=== PATIENT | female | born 1995 | race African-American/Black ===

== ENCOUNTER 2016-12-20 12:09 | Emergency (ER) | payer SELFPAY ==
[~2016-12-20] VITALS: Ht 157.5 cm; Wt 59.0 kg
[~2016-12-20 12:09] MED LIST: BENZ100C PO; CYCL10TA2 PO; FLUT9.9S NS; HYDR-971 PO; IBUP-1060 PO; PSEU120T58 PO; implanon
[2016-12-20 12:47] VITALS: BP 121/70
[2016-12-20] MEDS ORDERED: BUTALB/APAP/CAFEIN 50/325/40MG TABLET. PO PRN (13:30)
[2016-12-20] MEDS ORDERED: ONDANSETRON ODT 4 MG TAB.RAPDIS. PO ONE (13:30)
[2016-12-20] MEDS ORDERED: BUTA1CAP29 PO (13:48)
[2016-12-20] MEDS ORDERED: PROM25TA10 PO (13:48)
--- NOTE | 2016-12-20 13:49 | PHYS DOC ---
Past Medical History Past Medical History: Migraines Additional Past Medical Histor: reports seizures as child, none after puberty Past Surgical History: No Surgical History Alcohol Use: None Drug Use: None Adult General Chief Complaint Chief Complaint: HEADACHE HPI HPI Patient is a 21 year old female with history of migraine headaches who presents today with generalized migraine headache rated at 8 out of 10 that began 3 weeks ago and has been going on intermittently since then. Patient states she is supposed to be on migraine headache medication but she ran out of the medication. She states she does not have a PCP to get a refills. Patient denies this being the worst headache in her life. She is complaining of slight intermittent nausea with the headache. Review of Systems Review of Systems Constitutional: Denies fever or chills [] Eyes: Denies change in visual acuity, redness, or eye pain [] HENT: Denies nasal congestion or sore throat [] Respiratory: Denies cough or shortness of breath [] Cardiovascular: No additional information not addressed in HPI [] GI: Denies abdominal pain, nausea, vomiting, bloody stools or diarrhea [] : Denies dysuria or hematuria [] Musculoskeletal: Denies back pain or joint pain [] Integument: Denies rash or skin lesions [] Neurologic: Migraine headache Endocrine: Denies polyuria or polydipsia [] Current Medications Current Medications Current Medications Medications (Trade) Dose Ordered Sig/Bertrand Start Time Stop Time Status Last Admin Dose Admin Acetaminophen/ Butalbital/ Caffeine (Fioricet) 1 tab PRN Q6HRS PRN 12/20/16 13:30 Ondansetron HCl (Zofran Odt) 4 mg 1X ONCE 12/20/16 13:30 12/20/16 13:31 DC Allergies Allergies Allergies Coded Allergies Type Severity Reaction Last Updated Verified No Known Drug Allergies 04/21/14 No Physical Exam Physical Exam Constitutional: Well developed, well nourished, no acute distress, non-toxic appearance. [] HENT: Normocephalic, atraumatic, bilateral external ears normal, oropharynx moist, no oral exudates, nose normal. [] Eyes: PERRLA, EOMI, conjunctiva normal, no discharge. [] Neck: Normal range of motion, no tenderness, supple, no stridor. [] Cardiovascular:Heart rate regular rhythm, no murmur [] Lungs & Thorax: Bilateral breath sounds clear to auscultation [] Abdomen: Bowel sounds normal, soft, no tenderness, no masses, no pulsatile masses. [] Skin: Warm, dry, no erythema, no rash. [] Back: No tenderness, no CVA tenderness. [] Extremities: No tenderness, no cyanosis, no clubbing, ROM intact, no edema. [] Neurologic: Alert and oriented X 3, normal motor function, normal sensory function, no focal deficits noted. Cranial nerves II through XII intact Psychologic: Affect normal, judgement normal, mood normal. [] Current Patient Data Vital Signs Vital Signs Date Time Temp Pulse Resp B/P Pulse Ox O2 Delivery O2 Flow Rate FiO2 12/20/16 12:47 98.3 75 20 100 Room Air 98.3 EKG EKG [] Radiology/Procedures Radiology/Procedures [] Course & Med Decision Making Course & Med Decision Making Pertinent Labs and Imaging studies reviewed. (See chart for details) Patient is in the ED with chronic migraine headaches. Discharged with Fioricet and promethazine. Follow-up with her own doctor in 1-2 weeks. Dragon Disclaimer Dragon Disclaimer This electronic medical record was generated, in whole or in part, using a voice recognition dictation system. Departure Departure Impression: Primary Impression: Migraine headache Disposition: 01 HOME, SELF-CARE Condition: STABLE Referrals: NO PCP (PCP) Follow-up with your own doctor in a week Patient Instructions: Migraine Headache Additional Instructions: You were seen for chronic migraine headache. Take the prescribed medicines as needed. Follow-up with your own doctor in the next 7 days. Come back to the ED if symptoms worsen. Scripts Promethazine Hcl 25 Mg Tablet1 Tab PO PRN Q6HRS #20 TAB Prov:WAYNE TAYLOR APRN 12/20/16 Butalb/Acetaminophen/Caffeine (Fioricet 50-300-40 Mg Capsule)1 Each Capsule1 Each PO PRN Q4HRS PRN MIGRAINE HEADACHE #30 CAP Prov:WAYNE TAYLOR APRN 12/20/16 Problem Qualifiers Primary Impression: Migraine headache Migraine type: without aura Status migrainosus presence: without status migrainosus Intractability: not intractable Qualified Code: G43.009 - Migraine without aura, not intractable, without status migrainosus WAYNE TAYLOR APRN Dec 20, 2016 13:49
== END 2016-12-20 13:56 | disposition home or self-care (01) ==
LOC: ER 12:09
DX: G43.909 Migraine, unspecified, not intractable, without status migrainosus (principal)
CPT/HCPCS: 99283; Q0162

== ENCOUNTER 2017-05-24 13:10 | Emergency (ER) | payer SELFPAY ==
[~2017-05-24] VITALS: Ht 157.5 cm; Wt 66.8 kg
[2017-05-24 13:10] VITALS: BP 134/80
[~2017-05-24 13:10] MED LIST changes: +BUTA1CAP29 PO; +PROM25TA10 PO
--- NOTE | 2017-05-24 14:07 | PHYS DOC ---
Past Medical History Past Medical History: Migraines Additional Past Medical Histor: reports seizures as child, none after puberty Past Surgical History: No Surgical History Alcohol Use: None Drug Use: None Adult General Chief Complaint Chief Complaint: OTHER COMPLAINTS [facility] HPI Patient is a 22 year old female presents to the emergency department stating that she has had oral sex with her partner. She states that this occurred approximately one week ago when she developed some raised areas on her tongue at the back portion. She denies any pain or discharge. She denies any difficulty with swallowing. Patient continues to state that she has good cold the information has called the nursing lines and they were concerned for sexually transmitted infections. Patient does state that she has been having some white frothy vaginal discharge. She is unable to determine if there is an odor. She does state she has a history of bacterial vaginosis in the past. Review of Systems Review of Systems Constitutional: Denies fever or chills [] Eyes: Denies change in visual acuity, redness, or eye pain [] HENT: Denies nasal congestion or sore throat. C/o raised areas on the back of the tongue Respiratory: Denies cough or shortness of breath [] Cardiovascular: No additional information not addressed in HPI [] GI: Denies abdominal pain, nausea, vomiting, bloody stools or diarrhea [] : Denies dysuria or hematuria. C/o vaginal discharge Musculoskeletal: Denies back pain or joint pain [] Integument: Denies rash or skin lesions [] Neurologic: Denies headache, focal weakness or sensory changes [] Endocrine: Denies polyuria or polydipsia [] Current Medications Current Medications Current Medications Medications (Trade) Dose Ordered Sig/Bertrand Start Time Stop Time Status Last Admin Dose Admin Azithromycin (Zithromax) 1,000 mg 1X ONCE 05/24/17 14:15 05/24/17 14:18 DC Ceftriaxone Sodium (Rocephin Im) 250 mg 1X ONCE 05/24/17 14:15 05/24/17 14:18 DC Metronidazole (Flagyl) 2,000 mg 1X ONCE 05/24/17 14:15 05/24/17 14:18 DC Penicillin G Benzathine (Bicillin L-A) 2,400,000 unit 1X ONCE 05/24/17 14:15 05/24/17 14:18 DC Allergies Allergies Allergies Coded Allergies Type Severity Reaction Last Updated Verified No Known Drug Allergies 04/21/14 No Physical Exam Physical Exam Constitutional: Well developed, well nourished, no acute distress, non-toxic appearance. Patient is very tearful during assessment. HENT: Normocephalic, atraumatic, bilateral external ears normal, oropharynx moist, no oral exudates, nose normal. Tympanic membranes appear to be normal. Throat with no erythematous no exudate noted. Patient with small papule as noted on the back that time. No drainage or discharge coming from the site. Eyes: PERRLA, EOMI, conjunctiva normal, no discharge. [] Neck: Normal range of motion, no tenderness, supple, no stridor. [] Cardiovascular:Heart rate regular rhythm, no murmur [] Lungs & Thorax: Bilateral breath sounds clear to auscultation [] Skin: Warm, dry, no erythema, no rash. [] Back: No tenderness Extremities: No tenderness, no cyanosis, no clubbing, ROM intact, no edema. [] Neurologic: Alert and oriented X 3, normal motor function, normal sensory function, no focal deficits noted. [] Psychologic: Affect normal, judgement normal, mood normal. [] Vaginal exam completed with shallow oriented at bedside. Speculum exam patient with then white to yellow discharge noted in the vaginal vault. Manual exam no adnexal no CMT noted. Current Patient Data Vital Signs Vital Signs Date Time Temp Pulse Resp B/P (MAP) Pulse Ox O2 Delivery O2 Flow Rate FiO2 05/24/17 13:10 98.4 119 16 134/80 (98) 97 Room Air 98.4 Lab Values Laboratory Tests Test 05/24/17 13:50 Urine Collection Type Unknown Urine Color Yellow Urine Clarity Clear Urine pH 7.5 Urine Specific Halfway 1.015 Urine Protein Negative mg/dL (NEG-TRACE) Urine Glucose (UA) Negative mg/dL (NEG) Urine Ketones (Stick) Negative mg/dL (NEG) Urine Blood Negative (NEG) Urine Nitrite Negative (NEG) Urine Bilirubin Negative (NEG) Urine Urobilinogen Dipstick 0.2 mg/dL (0.2 mg/dL) Urine Leukocyte Esterase Negative (NEG) Urine RBC 0 /HPF (0-2) Urine WBC Occ /HPF (0-4) Urine Squamous Epithelial Cells Mod /LPF Urine Bacteria Moderate /HPF (0-FEW) Urine Mucus Mod /LPF POC Urine HCG, Qualitative Hcg negative (Negative) Microbiology 05/24/17 Wet Prep - Final, Complete EKG EKG [] Radiology/Procedures Radiology/Procedures [] Course & Med Decision Making Course & Med Decision Making Pertinent Labs and Imaging studies reviewed. (See chart for details) Wet prep was positive for bacterial vaginosis. Patient has requested be treated for syphilis, gonorrhea and chlamydia. Patient was also treated for Trichomonas. Patient will be discharged home with recommendations to follow-up the primary care physician in the next week. She will be placed on Flagyl at discharge. Recommended avoiding alcohol with this medication. Patient will be discharged home in stable condition signs and symptoms to return back to emergency department as been provided. All questions and concerns have been answered at the patient's bedside. [] Dragon Disclaimer Dragon Disclaimer This electronic medical record was generated, in whole or in part, using a voice recognition dictation system. Departure Departure Impression: Primary Impression: Vaginal discharge Additional Impressions: Concern about sexually transmitted disease in female without diagnosis Bacterial vaginosis Disposition: HOME, SELF-CARE Condition: STABLE Referrals: NO PCP (PCP) Patient Instructions: Bacterial Vaginosis, [id number] Additional Instructions: Wet prep was positive for bacterial vaginosis. You have been treated for sexual transmitted infections here in the emergency department, such as syphilis, gonorrhea, Chlamydia and Trichomonas. Your wet prep was positive as the chin about for bacterial vaginosis she'll be placed on Flagyl. Do not drink alcohol when taking this medication. Follow-up the primary care physician in the next week. You'll be notified if any of your test results come back positive. Return back to emergency prior signs symptoms of become worse. Scripts Metronidazole (FLAGYL) 500 Mg Tablet 1 TAB PO BID, #14 TAB Prov: DHEERAJ MARKS APRN 05/24/17 Problem Qualifiers DHEERAJ MARKS APRN May 24, 2017 14:07
[2017-05-24 14:13] LABS: BILIRUBIN,URINE NEGATIVE (NEG); GLUCOSE,URINE NEGATIVE (NEG); NITRITE,URINE NEGATIVE (NEG); PH,URINE 7.5; PROTEIN,URINE NEGATIVE (NEG-TRACE); UROBILINOGEN,URINE 0.2 mg/dL (0.2 mg/dL)
[2017-05-24] MEDS ORDERED: AZITHROMYCIN 250 MG TABLET. PO ONE (14:15)
[2017-05-24] MEDS ORDERED: metroNIDAZOLE 500 MG TABLET PO ONE (14:15)
[2017-05-24] MEDS ORDERED: cefTRIAXone IM 250 MG VIAL IM ONE (14:15)
[2017-05-24] MEDS ORDERED: PENICILLIN G BENZATHINE LA 2,400,000 UNIT/4 ML DISP.SYRIN. IM ONE (14:15)
[2017-05-24 14:25] LABS: BACTERIA,URINE MODERATE /HPF (0-FEW); RBC,URINE 0 /HPF (0-2); SQUAMOUS EPITHELIAL CELL,UR MOD /LPF; WBC,URINE OCC /HPF (0-4)
[2017-05-24] MEDS ORDERED: METR500T PO (14:36)
[2017-05-25 06:16] LABS: RPR REFLEX Non Reactive (Non Reactive)
[2017-05-26 21:12] LABS: HERPES SIMPLEX TYPE 1 Negative (Negative); HERPES SIMPLEX TYPE 2 Negative (Negative)
== END 2017-05-24 15:13 | disposition home or self-care (01) ==
LOC: ER 13:10
DX: Z11.3 Encounter for screening for infections with a predominantly sexual mode of transmission (principal); N76.0 Acute vaginitis; G43.909 Migraine, unspecified, not intractable, without status migrainosus
CPT/HCPCS: 36415; 81001; 81025; 86593; 87086; 87491; 87529; 87591; 96372; 99284; J0561; J0696; Q0111; Q0144

== ENCOUNTER 2017-08-06 04:17 | Emergency (ER) | payer SELFPAY ==
[~2017-08-06] VITALS: Ht 157.5 cm; Wt 63.5 kg
[~2017-08-06 04:17] MED LIST changes: +METR500T PO
[2017-08-06 04:32] VITALS: BP 122/64
--- NOTE | 2017-08-06 04:43 | PHYS DOC ---
Past Medical History Past Medical History: Migraines Additional Past Medical Histor: reports seizures as child, none after puberty Past Surgical History: No Surgical History Alcohol Use: None Drug Use: None Adult General Chief Complaint Chief Complaint: CHEST PAIN HPI HPI Patient is a 22 year old female who presents with with sided chest pain shortness of breath. She states she has shortness of breath when she was arriving here today currently is resolved. She states over the last 2 days she' s had left-sided sharp stabbing pains over her left breast last for a few minutes and resolves. Sometimes the pain has been resolved for 3-4 hours and returned briefly. She states when she takes a big deep breath it makes the pain worse. She denies any nausea or vomiting with these episodes. She is on control pills. She denies any family history of coronary artery disease or blood clots. She states she's never had a blood clot before. She denies any swelling in her calves or legs, she denies any long car trips or flights. Review of Systems Review of Systems Constitutional: Denies fever or chills [] Eyes: Denies change in visual acuity, redness, or eye pain [] HENT: Denies nasal congestion or sore throat [] Respiratory: Denies cough or shortness of breath [] Cardiovascular: No additional information not addressed in HPI [] GI: Denies abdominal pain, nausea, vomiting, bloody stools or diarrhea [] : Denies dysuria or hematuria [] Musculoskeletal: Denies back pain or joint pain [] Integument: Denies rash or skin lesions [] Neurologic: Denies headache, focal weakness or sensory changes [] Endocrine: Denies polyuria or polydipsia [] All other systems were reviewed and found to be within normal limits, except as documented in this note. Allergies Allergies Allergies Coded Allergies Type Severity Reaction Last Updated Verified No Known Drug Allergies 04/21/14 No Physical Exam Physical Exam Constitutional: Well developed, well nourished, no acute distress, non-toxic appearance. [] HENT: Normocephalic, atraumatic, bilateral external ears normal, oropharynx moist, no oral exudates, nose normal. [] Eyes: PERRLA, EOMI, conjunctiva normal, no discharge. [] Neck: Normal range of motion, no tenderness, supple, no stridor. [] Cardiovascular:Heart rate regular rhythm, no murmur [] Lungs & Thorax: Bilateral breath sounds clear to auscultation [] Abdomen: Bowel sounds normal, soft, no tenderness, no masses, no pulsatile masses. [] Skin: Warm, dry, no erythema, no rash. [] Back: No tenderness, no CVA tenderness. [] Extremities: No tenderness, no cyanosis, no clubbing, ROM intact, no edema. [] Neurologic: Alert and oriented X 3, normal motor function, normal sensory function, no focal deficits noted. [] Psychologic: Affect normal, judgement normal, mood normal. [] Current Patient Data Vital Signs Vital Signs Date Time Temp Pulse Resp B/P (MAP) Pulse Ox O2 Delivery O2 Flow Rate FiO2 08/06/17 04:32 98.4 76 20 122/64 (83) 99 Room Air 98.4 Lab Values Laboratory Tests Test 08/06/17 04:55 White Blood Count 11.7 x10^3/uL (4.0-11.0) H Red Blood Count 4.73 x10^6/uL (3.50-5.40) Hemoglobin 13.8 g/dL (12.0-15.5) Hematocrit 40.4 % (36.0-47.0) Mean Corpuscular Volume 85 fL (79-100) Mean Corpuscular Hemoglobin 29 pg (25-35) Mean Corpuscular Hemoglobin Concent 34 g/dL (31-37) Red Cell Distribution Width 13.7 % (11.5-14.5) Platelet Count 300 x10^3/uL (140-400) Neutrophils (%) (Auto) 70 % (31-73) Lymphocytes (%) (Auto) 19 % (24-48) L Monocytes (%) (Auto) 8 % (0-9) Eosinophils (%) (Auto) 2 % (0-3) Basophils (%) (Auto) 1 % (0-3) Neutrophils # (Auto) 8.2 x10^3uL (1.8-7.7) H Lymphocytes # (Auto) 2.3 x10^3/uL (1.0-4.8) Monocytes # (Auto) 0.9 x10^3/uL (0.0-1.1) Eosinophils # (Auto) 0.2 x10^3/uL (0.0-0.7) Basophils # (Auto) 0.1 x10^3/uL (0.0-0.2) D-Dimer (Kaity) < 0.27 ug/mlFEU Sodium Level 141 mmol/L (136-145) Potassium Level 3.7 mmol/L (3.5-5.1) Chloride Level 105 mmol/L (98-107) Carbon Dioxide Level 29 mmol/L (21-32) Anion Gap 7 (6-14) Blood Urea Nitrogen 8 mg/dL (7-20) Creatinine 0.7 mg/dL (0.6-1.0) Estimated GFR (Cockcroft-Gault) 126.6 Glucose Level 94 mg/dL (70-99) Calcium Level 9.7 mg/dL (8.5-10.1) Total Bilirubin 0.3 mg/dL (0.2-1.0) Direct Bilirubin 0.1 mg/dL (0.0-0.2) Aspartate Amino Transferase (AST) 15 U/L (15-37) Alanine Aminotransferase (ALT) 15 U/L (14-59) Alkaline Phosphatase 84 U/L (46-116) Creatine Kinase 55 U/L (26-192) Creatine Kinase MB (Mass) < 0.5 ng/mL (0.0-3.6) Creatine Kinase MB Relative Index % (0-4) BX-Sbe-W-Type Natriuretic Peptide 20 pg/mL (0-124) Total Protein 8.1 g/dL (6.4-8.2) Albumin 4.2 g/dL (3.4-5.0) Lipase 118 U/L (73-393) Serum Test, Qualitative Negative (NEG) Laboratory Tests 08/06/17 04:55 Laboratory Tests 08/06/17 04:55 EKG EKG EKG shows sinus rhythm [address] elevations, T-wave inversion in lead 3, normal axis, QTC 378 ms, as interpreted by me. Radiology/Procedures Radiology/Procedures View chest x-ray did not show any focal consolidations, bony abnormality's, pneumothorax, as interpreted by me. Impressions: Chest pain Course & Med Decision Making Course & Med Decision Making Pertinent Labs and Imaging studies reviewed. (See chart for details) I cannot use a perc score to rule her out as she is on control and has an implant in her arm. D-dimer is negative. Her EKG has T-wave inversions in lead 3 otherwise is nonacute. Her labs are non-concerning in addition to her vitals. She is not tachycardic or tachypnea. She's being discharged home with return precautions. Dragon Disclaimer Dragon Disclaimer This electronic medical record was generated, in whole or in part, using a voice recognition dictation system. Departure Departure Impression: Primary Impression: Chest pain Disposition: HOME, SELF-CARE Condition: STABLE Referrals: NO PCP (PCP) Patient Instructions: Chest Pain (Nonspecific) Additional Instructions: You were seen tonight for your chest pain. Your EKG did not show any acute abnormalities. Your labs also was within normal limits. This is likely muscle skeletal in nature. You should follow-up to primary care physician within the next 2-4 days. If your pain gets worse, you have troubles breathing or other concerns please return back to emergency department. KARIE CANTU MD Aug 06, 2017 04:43
[2017-08-06 05:10] LABS: BASO # 0.1 x10^3/uL (0.0-0.2); BASO % 1 % (0-3); EOS % 2 % (0-3); HEMATOCRIT 40.4 % (36.0-47.0); HEMOGLOBIN 13.8 g/dL (12.0-15.5); LYMPH # 2.3 x10^3/uL (1.0-4.8); LYMPH % 19 % (24-48); MEAN CORPUSCULAR HEMOGLOBIN 29 pg (25-35); MEAN CORPUSCULAR HGB CONC 34 g/dL (31-37); MEAN CORPUSCULAR VOLUME 85 fL (79-100); MONO % 8 % (0-9); NEUT % 70 % (31-73); PLATELET COUNT 300 x10^3/uL (140-400); RED BLOOD COUNT 4.73 x10^6/uL (3.50-5.40); RED CELL DISTRIBUTION WIDTH 13.7 % (11.5-14.5); WHITE BLOOD COUNT 11.7 x10^3/uL (4.0-11.0)
[2017-08-06 05:29] LABS: CALCIUM 9.7 mg/dL (8.5-10.1); CREATININE 0.7 mg/dL (0.6-1.0); GFR 126.6; POTASSIUM 3.7 mmol/L (3.5-5.1)
[2017-08-06 05:34] LABS: ALBUMIN 4.2 g/dL (3.4-5.0); DIRECT BILIRUBIN 0.1 mg/dL (0.0-0.2); TOTAL BILIRUBIN 0.3 mg/dL (0.2-1.0); TOTAL PROTEIN 8.1 g/dL (6.4-8.2)
[2017-08-06 05:44] LABS: CREATINE KINASE 55 U/L (26-192)
[2017-08-06 05:45] LABS: CKMB MASS < 0.5 ng/mL (0.0-3.6)
[2017-08-06 05:47] LABS: NEG OBC SER NEG; POS OBC SER POS
--- NOTE | 2017-08-06 07:43 | RAD ---
Single view chest History:chest pain An AP view of the chest is submitted. Comparison: None. Findings: There is no significant infiltrate, pleural effusion, or pneumothorax. The pericardial cardiac silhouette is within normal limits in size. The trachea is in the midline. No acute osseous abnormality is identified. Impression: There is no evidence of acute cardiopulmonary disease.
--- NOTE | 2017-08-06 11:25 | EKG ---
[facility] [address] [place] [address] Test Date: 2017-08-06 Test Time: 04:32:24 Pat Name: SOFIA LEVY Department: Room: Gender: F Computer Science Instructor: : 1995 Requested By: KARIE CANTU Order Number: [id number] Reading MD: Measurements Intervals [place] Rate: 73 P: 0 MA: 126 QRS: 44 QRSD: 84 T: 2 QT: 340 QTc: 378 Interpretive Statements SINUS RHYTHM NORMAL ECG RI6.01 No previous ECG available for comparison
[2017-08-07] MEDS ORDERED: SULF1TAB24 PO (16:02)
[2017-08-07] MEDS ORDERED: HYDR-971 PO (16:02)
== END 2017-08-06 06:33 | disposition home or self-care (01) ==
LOC: ER 04:17
DX: R07.89 Other chest pain (principal); R06.02 Shortness of breath; G43.909 Migraine, unspecified, not intractable, without status migrainosus
CPT/HCPCS: 36415; 71010; 80048; 80076; 82553; 83690; 83880; 84703; 85025; 85379; 93005; 99285-25

== ENCOUNTER 2017-08-07 13:17 | Emergency (ER) | payer SELFPAY ==
[~2017-08-07] VITALS: Ht 157.5 cm; Wt 63.5 kg
[2017-08-07 14:30] VITALS: BP 114/56
[2017-08-07] MEDS ORDERED: HYDROcodone/APAP 5/325MG 1 TAB TABLET PO ONE (14:45)
[2017-08-07] MEDS ORDERED: LIDOCAINE 1% / SOD BICARB 8.4% 20 ML VIAL. IJ ONE (14:45)
[2017-08-07] MEDS ORDERED: HYDR-971 PO (16:02)
[2017-08-07] MEDS ORDERED: SULF1TAB24 PO (16:02)
--- NOTE | 2017-08-07 16:02 | PHYS DOC ---
Past Medical History Past Medical History: Migraines Additional Past Medical Histor: reports seizures as child, none after puberty Past Surgical History: No Surgical History Alcohol Use: None Drug Use: None Adult General Chief Complaint Chief Complaint: ABSCESS HPI HPI Patient is a 22 year old female who presents with right buttock abscess that began one week ago. Patient denies any fever or drainage from the area. She states she has history of an abscess to the area last year. Review of Systems Review of Systems Constitutional: Denies fever or chills [] Musculoskeletal: Denies back pain or joint pain [] Integument: right buttock abscess Neurologic: Denies headache, focal weakness or sensory changes [] All other systems were reviewed and found to be within normal limits, except as documented in this note. Current Medications Current Medications Current Medications Medications (Trade) Dose Ordered Sig/Bertrand Start Time Stop Time Status Last Admin Dose Admin Acetaminophen/ Hydrocodone Bitart (Lortab 5/325) 1 tab 1X ONCE 08/07/17 14:45 08/07/17 14:46 DC 08/07/17 14:50 1 TAB Lidocaine/Sodium Bicarbonate (Buffered Lidocaine 1%) 20 ml 1X ONCE 08/07/17 14:45 08/07/17 14:46 DC 08/07/17 14:51 20 ML Allergies Allergies Allergies Coded Allergies Type Severity Reaction Last Updated Verified No Known Drug Allergies 04/21/14 No Physical Exam Physical Exam Constitutional: Well developed, well nourished, no acute distress, non-toxic appearance. [] Skin: Warm, dry, right inner buttock with none indurated area of cellulitis approximately 2 x 2 centimeters. The area feels warm and fluctuant. Back: No tenderness, no CVA tenderness. [] Extremities: No tenderness, no cyanosis, no clubbing, ROM intact, no edema. [] Neurologic: Alert and oriented X 3, normal motor function, normal sensory function, no focal deficits noted. [] Psychologic: Affect normal, judgement normal, mood normal. [] Current Patient Data Vital Signs Vital Signs Date Time Temp Pulse Resp B/P (MAP) Pulse Ox O2 Delivery O2 Flow Rate FiO2 08/07/17 14:30 98.1 82 16 99 Room Air 98.1 EKG EKG [] Radiology/Procedures Radiology/Procedures Indication: abscess to the right buttock Procedure: The patient was positioned appropriately. Local anesthesia was 1% buffered lidocaine. An incision was then made over the apex of the lesion and mild amount of yellow bloody material was expressed. The drainage cavity was irrigated and packed with sterile gauze. The patients tetanus status updated as needed. The patient tolerated the procedure well. Complications: none.[] Course & Med Decision Making Course & Med Decision Making Pertinent Labs and Imaging studies reviewed. (See chart for details) Patient has an abscess to the right buttock that was drained and packed by me as noted in procedures. Tetanus is up-to-date. Discharged on Bactrim. Instructed to return to the ED in 2 days for wound check and packing removal. Dragon Disclaimer Dragon Disclaimer This electronic medical record was generated, in whole or in part, using a voice recognition dictation system. Departure Departure Impression: Primary Impression: Abscess of cellulitis of buttock Disposition: 01 HOME, SELF-CARE Condition: STABLE Referrals: NO PCP (PCP) follow with your doctor in one week Patient Instructions: Abscess Additional Instructions: You have an abscess on the right buttocks that was drained in the emergency room and packed. Apply warm compresses to the area twice a day. Keep the area clean and dry. Follow-up with the emergency room in 2 days for wound check and packing removal. Take your antibiotics as prescribed Scripts Hydrocodone/Apap 5-325 (NORCO 5-325 TABLET) 1 Each Tablet 1 TAB PO Q4-6HRS Y for PAIN, #10 TAB Prov: WAYNE TAYLOR APRN 08/07/17 Sulfamethoxazole/Trimethoprim (BACTRIM DS TABLET) 1 Each Tablet 1 TAB PO BID, #20 TAB Prov: WAYNE TAYLOR APRN 08/07/17 WAYNE TAYLOR APRN Aug 07, 2017 16:02
== END 2017-08-07 16:08 | disposition home or self-care (01) ==
LOC: ER 13:17
DX: L03.317 Cellulitis of buttock (principal); G43.909 Migraine, unspecified, not intractable, without status migrainosus
CPT/HCPCS: 10060; 99283-25